=== PATIENT | male | born 1980 ===

== ENCOUNTER 2024-09-17 15:50 | Emergency (ER) | payer OTHER ==
[~2024-09-17] VITALS: Ht 162.6 cm; Wt 62.6 kg
[2024-09-17] MEDS ORDERED: ATORVASTATIN CA10 MG PO (19:02)
[2024-09-17] MEDS ORDERED: AMLODIPINE-OLM1 EAC2 (19:02)
[2024-09-17] MEDS ORDERED: AVAPRO75 MG PO (19:02)
[2024-09-17] MEDS ORDERED: LITHATE5 MG (19:02)
[2024-09-17] MEDS ORDERED: WELLBUTRIN SR100 MG PO (19:03)
[2024-09-17] MEDS ORDERED: TRELEGY ELLIPT1 EACH IH (19:03)
[2024-09-17] MEDS ORDERED: AMBIEN5 MG PO (19:03)
[2024-09-17] MEDS ORDERED: VALACYCLOVIR500 MG PO (19:03)
[2024-09-17] MEDS ORDERED: PROAIR RESPICL90 MCG IH (19:03)
[2024-09-17] MEDS ORDERED: DEXAMETHASONE SODIUM PHOSPHATE 4 MG/ML VIAL IM ONE (22:00)
[2024-09-17] MEDS ORDERED: ORPHENADRINE CITRATE 30 MG/ML AMPUL IM ONE (22:00)
[2024-09-17] MEDS ORDERED: DICLOFENAC SODI75 MG PO (23:01)
[2024-09-17] MEDS ORDERED: BACLOFEN10 MG PO (23:01)
== END 2024-09-17 23:33 | disposition home or self-care (01) ==
LOC: ER 15:50
DX: M54.50 Low back pain, unspecified (principal); I10 Essential (primary) hypertension; Z88.8 Allergy status to other drugs, medicaments and biological substances